=== PATIENT | male | born 1965 | race Caucasian/White ===

== ENCOUNTER 2022-08-02 17:43 | Emergency (ER) | payer SELFPAY ==
--- NOTE | ~2022-08-02 | XR_ITS ---
EXAMINATION: XR chest 2V DATE: 08/02/2022 18:18 INDICATION: Chest pain. TECHNIQUE: Frontal and lateral views of the chest were obtained on 3 radiographs. COMPARISON: Chest 2 views 06/09/2015, CT abdomen and pelvis 10/02/2010 FINDINGS: A calcified right lung nodule is consistent with old granulomatous disease. There is mild s carring at the lung apices. No pleural effusion or pneumothorax. The heart size is normal. IMPRESSION: 1. No acute cardiopulmonary disease. Reviewed, dictated and finalized at location A. ICAL ENGINEERING MANAGER
[2022-08-02 17:55] VITALS: BP 145/98; PULSE 83; RESP 14; TEMP 36.8; O2SAT 97
--- NOTE | 2022-08-02 17:55 | ECG_ITS ---
Measurements Intervals [place] Rate: 81 P: 59 DC: 166 QRS: 16 QRSD: 93 T: 54 QT: 326 QTc: 379 Interpretive Statements SINUS RHYTHM WITHIN NORMAL LIMITS NO PREVIOUS ECG AVAILABLE FOR COMPARISON Electronically Signed On 08-03-2022 15:08:52 EMT INTERMEDIATE by Johnathan Marks M.D.
[2022-08-02 18:16] LABS: Alanine Aminotransferase 28 U/L (6-50); Albumin Level 4.6 g/dL (3.5-5.1); Alkaline Phosphatase 48 U/L (38-126); Anion Gap 6 mmol/L (8-16); Aspartate Amino Transferase 27 U/L (17-59); Bilirubin,Total 0.7 mg/dL (0.2-1.3); Blood Urea Nitrogen 16 mg/dL (9-20); Calcium 8.5 mg/dL (8.4-10.2); Carbon Dioxide 25 mmol/L (22-30); Chloride 105 mmol/L (98-107); Estimated CRCL calculation 84 ml/min; Estimated Glomerular Filt Rate > 60; Glucose 113 mg/dL (65-110); Lipase 160 U/L (23-300); Potassium 3.7 mmol/L (3.4-5.0); Sodium 136 mmol/L (137-145)
[2022-08-02 18:22] LABS: Partial Thromboplastin Time 30.2 SECONDS (22.3-36.8); Prothrombin Time 13.1 Seconds (11.1-14.7)
[2022-08-02 18:26] LABS: Troponin I < 0.012 ng/mL (0.000-0.034)
[2022-08-02 19:08] LABS: Basophils Absolute Auto 0.1 K/mm3 (0.0-0.1); Basophils Percent Auto 0.7 % (0.2-1.2); Eosinophils Absolute Auto 0.2 K/mm3 (0-0.3); Eosinophils Percent Auto 1.9 % (0-4.4); Hematocrit 48.8 % (42.0-52.0); Hemoglobin 17.1 g/dL (14.0-18.0); Immature Granulocyte Absolute 0.05 K/mm3 (0.00-0.031); Immature Granulocyte Percent A 0.5 % (0-0.5); Lymphocytes Absolute Auto 3.42 K/mm3 (0.9-3.2); Lymphocytes Percent Auto 35.4 % (18.3-44.2); Mean Corpuscular Hemoglobin 30.9 pg (26-34); Mean Corpuscular Volume 88.2 fl (80-100); Mean Platelet Volume 8.7 fl (7.4-10.4); Monocytes Absolute Auto 0.7 K/mm3 (0.1-0.6); Monocytes Percent Auto 7.1 % (2.6-8.5); Neutrophils Absolute Auto 5.3 K/mm3 (1.3-6.7); Neutrophils Percent Auto 54.4 % (45.5-73.1); Platelet Count Result 179 k/mm3 (150-375); Red Blood Count 5.53 M/mm3 (4.6-6.20); Red Cell Distribution Width 13.1 % (11.5-14.5); White Blood Count 9.7 K/mm3 (4.5-10.0)
[2022-08-02 19:55] VITALS: BP 151/96; PULSE 69; O2SAT 97
--- NOTE | 2022-08-02 20:17 | PC.NURSE ---
patient states that the pressure in his chest is relieved now. patient will follow up with plant technician/control room operator tomorrow.
== END 2022-08-02 20:17 | disposition left against medical advice (07) ==
PROVIDERS: Emergency Provider Emergency Medicine; PCP Internal Medicine Endocrinology, Diabetes & Metabolism
DX: R07.9 Chest pain, unspecified (principal)
CPT/HCPCS: 36415; 71046; 80053; 83690; 84484; 85025; 85610; 85730; 93005; 99199

== ENCOUNTER 2023-08-02 16:57 | Emergency (ER) | payer OTHER, SELFPAY ==
--- NOTE | ~2023-08-02 | XR_ITS ---
EXAMINATION: XR foot RT min 3V DATE: 08/02/2023 17:14 INDICATION: Right foot injury and pain. TECHNIQUE: 4 views of right foot were obtained. COMPARISON: None. FINDINGS: Bone alignment is normal. No fracture. There is mild osteoarthritis of first metatarsophala ngeal joint. There is an enthesophyte at posterior aspect of calcaneal tuberosity. IMPRESSION: 1. Mild osteoarthritis of first metatarsophalangeal joint. Reviewed, dictated and finalized at location E. D EQUIPMENT MECHANIC
--- NOTE | 2023-08-02 17:01 | ED.LOWEXIN ---
HPI - Extremity Injury (Lower) General Chief Complaint: Extremity Injury, Lower Stated Complaint: Right Foot Injury Time Seen by Provider: 08/02/23 17:01 Source: patient Mode of arrival: ambulatory Limitations: no limitations History of Present Illness HPI Narrative: Patient is a 57-year-old male who presents with right foot pain after accidentally kicking 1 indoor this morning. Patient reports bruising, swelling and tenderness to medial foot at base of back toe. Patient still able to ambulate normally. Denies any numbness or tingling. Able to wiggle toes normally. Has taken Advil. Related Data Home Medications Medication Instructions Recorded Confirmed bupropion HCl 300 mg 24 hr tablet, 300 mg PO DAILY 08/02/23 08/02/23 extended release buspirone 15 mg tablet 30 mg PO DAILY 08/02/23 08/02/23 simvastatin 40 mg tablet 40 mg PO DAILY 08/02/23 08/02/23 tadalafil 5 mg tablet 5 mg PO DAILY 08/02/23 08/02/23 testosterone enanthate 100 mg/0.5 100 mg subcut WEEKLY 08/02/23 08/02/23 mL subcutaneous auto-injector (Xyosted) Allergies Allergy/AdvReac Type Severity Reaction Status Date / Time No Known Allergies Allergy Verified 08/02/23 17:02 Review of Systems Review of Systems: All systems reviewed & are unremarkable except as noted in HPI and below Constitutional: Constitutional: Denies body ache(s), Denies chills, Denies fatigue, Denies fever(s), Denies headache(s), Denies malaise and Denies weakness Eyes: Eyes: Denies blurry vision, Denies irritation and Denies loss of vision ENT: Denies otalgia, Denies headache(s), Denies nasal discharge, Denies sinus pain and Denies sore throat Cardiovascular: Cardiovascular: Denies chest pain, Denies irregular heart rhythm and Denies dyspnea Respiratory: Respiratory: Denies dyspnea Gastrointestinal: Gastrointestinal: Denies abdominal pain, Denies melena, Denies hematochezia, Denies diarrhea, Denies nausea and Denies vomiting Musculoskeletal: Musculoskeletal: Denies back pain, Denies myalgias and Reports arthralgias Integumentary/Breasts: Skin/Breast: Denies pruritus and Denies rash Neurologic: Denies headache(s), Denies loss of vision and Denies weakness Psychiatric: Psychiatric: Reports no additional psychiatric complaints Endocrine: Endocrine: Denies fatigue PMFSH Social History Social History Alcohol intake: current Comments At time of signature, agree with nursing past medical, surgical, social and family history. There is no relevant family history pertinent to the presenting complaint. Exam Const: General: cooperative, healthy appearing, comfortable, no acute distress and well nourished Nutritional Appearance: well nourished Orientation/consciousness: patient oriented x3 Limitations: no limitations HENMT: Head: normal to inspection, normocephalic and atraumatic Ears: hearing grossly normal bilaterally and external ears normal Face/Nose/Sinus: Normal external nose present, normal facial exam and face symmetric Face and sinus: normal facial exam and face symmetric Mouth: Yes lip normal Eyes: General: appearance normal, both eyes and all related structures Alignment and Position: alignment normal and position normal Periorbital: periorbital findings normal Eyelids: eyelids normal Pupils: Equal, round and reactive pupils present EOM: EOMs intact bilaterally Neck: Neck: normal visual inspection, full ROM and supple Chest: Chest palpation & inspection: normal inspection of the chest Resp: Effort & Inspection: normal respiratory effort and able to speak in complete sentences Auscultation: clear to auscultation bilaterally Cardio: Rate: regular rate Rhythm: regular rhythm Heart sounds: S1 normal heart sound present and S2 normal heart sound present GI: Inspection: normal to inspection Skin: General skin exam: normal color and no rashes or lesions noted Neuro: General: patient oriented x3
[2023-08-02 17:04] VITALS: BP 140/80; PULSE 87; RESP 16; TEMP 36.6; O2SAT 100
== END 2023-08-02 17:28 | disposition home or self-care (01) ==
PROVIDERS: Emergency Provider Nurse Practitioner Family; PCP Internal Medicine Endocrinology, Diabetes & Metabolism
DX: M19.071 Primary osteoarthritis, right ankle and foot (principal); S90.31XA Contusion of right foot, initial encounter; W22.8XXA Striking against or struck by other objects, initial encounter; E78.00 Pure hypercholesterolemia, unspecified; F41.9 Anxiety disorder, unspecified; F32.A Depression, unspecified
CPT/HCPCS: 73630; 99213; G0463

== ENCOUNTER 2024-12-21 13:30 | Outpatient (CLI) | payer OTHER, SELFPAY ==
--- NOTE | ~2024-12-21 | PE_ITS ---
EXAMINATION: PET_PETPSMAST_PT DATE: 12/21/2024 15:33 INDICATION: Prostate cancer TECHNIQUE: 5.563 mCi of Illucix Ga-68([id number]) was administered i.v. Low dose computed mare graphy (CT) images were acquired from the base of the brain to the base of the brain to the proximal thighs for attenuation correction and anatomic localization. Positron emission tomography (PET) image s were acquired in the same distribution beginning 99 minutes after injection. Images including fused PET/CT images were reconstructed in axial, coronal, and sagittal planes. Automated exposure control technique was employed. The dose-length product was 1204.02mGy-cm. COMPARISON: None FINDINGS: Head/neck: Typical pattern of symmetric physiologic increased activity in the lacrimal, parotid and submandibula r glands as well as along the mucosa of the nasal and oral cavities. No pathologically enlarged cervi shashi lymphadenopathy or suspicious foci of increased uptake in the visualized head or neck. Chest: Dependent atelectasis in both lungs. Calcified nodules in the right lung along with calcified right h ilar and mediastinal lymph nodes consistent with old granulomatous disease. No suspicious pulmonary n odules, pneumonia, pulmonary edema or pleural effusion. Heart size is normal. Small amount of atheros clerotic coronary artery calcification. No pericardial effusion. Thoracic aorta is normal in caliber. No pathologically enlarged or PSMA avid thoracic lymphadenopathy. Abdomen/pelvis/proximal thighs: Physiologic renal accumulation and excretion of activity in the kidneys, bladder and along portions o f ureters. Prostatomegaly measuring 5.0 x 4.3 cm. There is heterogeneous heterogeneous minimal increa sed uptake in the right first posterior prostate with maximal SUV of 2.9. Normal degree and slightly heterogenous pattern of increased uptake throughout the liver and spleen without radiologic correlate or dominant PSMA avid lesion. A few splenic calcifications consistent with old granulomatous disease . The gallbladder, pancreas and bilateral adrenal glands are normal. Moderate uptake scattered throug hout the bowels with typical duodenal and proximal jejunal predominance and without radiologic correl ate, also likely physiologic. No other abnormal foci of increased uptake or pathologically enlarged l ymphadenopathy in the abdomen, pelvis or proximal thighs. Musculoskeletal: No suspicious lytic, blastic or abnormally PSMA avid bone lesions. IMPRESSION: 1. Prostatomegaly with heterogeneous minimal increased uptake in the right posterior prostate which l ikely represents the site of the reported primary prostate cancer. No evident metastatic disease. Reviewed, dictated and finalized at location A. IMPRESSION: 1. Prostatomegaly with heterogeneous minimal increased uptake in the right post erior prostate which likely represents the site of the reported primary prostat e cancer. No evident metastatic disease.
--- OUTSIDE RECORDS SUMMARY | 2024-12-21 13:35 | XMS_ITS | Referral Summary ---
Author Organization [facility] Address [address] [place] [address] Care Team Providers Care Manager Dental Name Role Phone Johnathan Day MD Primary Care Provider + Pierre Moran MD Unavailable [phone] Fatuma Vásquez RN Unavailable Unavailable Evita Mendoza RN Unavailable Unavailab le Encounters Date Type Department Care Team Description 12/21/2024 Telephone [facility] [address] [place] [phone] Johnathan Day MD 12/15/2024 1:20 PM CDT Office Visit [facility]iology [facility] 8th [place] [address] [place] [phone] Pierre Moran MD Mixed hyperlipidemia (Primary Dx) 09/23/2024 Results Follow-Up [facility] [address] [facility] [place] [phone] Johnathan Day MD TSH, T4, free, Comprehensive metabolic panel, Additional followed-up results: 4 09/23/2024 5:05 PM CDT Lab [facility] [place] [phone] Mixed hyperlipidemia; Atypical atrial flutter (HCC); Elevated PSA measurement; Hypogonadism male 09/23/2024 1:15 PM CDT Office [facility] [address] [place] [address] Johnathan Day MD Mixed hyperlipidemia (Primary Dx); Atypical atrial flutter (HCC); Elevated PSA measurement; Hypogonadism male 09/23/2024 2:30 PM CDT Office Visit [facility]iology [address] 8th [place] [address] [place] [address] Rebekah Holman NP Atypical atrial flutter (HCC) (Primary Dx) from Last 3 Months Allergies No known active allergies Medications busPIRone (BUSPAR) 15 mg tablet Take 1 tablet (15 mg total) by mouth 2 (two) times a day Active buPROPion XL (WELLBUTRIN XL) 300 mg 24 hr tablet 3 Active Xyosted 100 mg/0.5 mL auto-injector Inject 0.5 mL by subcutaneous injection every 7 days. 6 mL 1 4 Active Lactobacillus acidophilus 10 billion cell capsule Take by mouth Active simvastatin (ZOCOR) 40 mg tablet TAKE 1 TABLET DAILY 90 tablet 2 5 Active tadalafiL (CIALIS) 5 mg tablet TAKE 1 TABLET DAILY 90 tablet 3 5 Active Active Problems Problem Noted Date Diagnosed Date Elevated PSA measurement 09/23/2024 Acute cystitis without hematuria 05/21/2024 Overview (05/21/2024): Check urine culture PSA Hypogonadism male 08/16/2020 Overview (08/16/2020): Continue xyosted Mixed hyperlipidemia 06/25/2017 Periodic limb movements of sleep 06/25/2017 Action tremor 06/25/2017 Paroxysmal atrial fibrillation 06/05/2017 Palpitations 04/25/2016 Myoclonus 10/20/2015 Restless sleeper 10/20/2015 Snoring 10/20/2015 Atypical atrial flutter 06/20/2015 Thrombosed external hemorrhoids 11/05/2014 Overview (09/14/2016): External hemorrhoid, thrombosed Immunizations Immunization Administration Dates Next Due Influenza, Quadrivalent, Rachel l Culture-based MDCK, Antibiotic Free, Intramuscular 03/17/2020 Tdap 12/22/2017 Social History Tobacco Use Types Packs/Day Years Used Date Smoking Tobacco: Never Smokeless Tobacco: Never Tobacco Cessation:Counseling Given: Not Answered Alcohol Use Standard Drinks/Week Comments No 0 (1 standard drink = 0.6 oz pur e alcohol) PHQ-2 Answer Date Recorded PHQ-2 Total Score (If total score is 3 or more points, staff should administer the PHQ-9) 0 09/12/2023 PHQ-9 Answer Date Recorded PHQ-9 Total Score 3 09/12/2023 Sex and Gender Information Value Date Recorded Sex Assigned at Not on file Legal Sex Male 1:22 AM QUEEN PRODUCER Gender Identity Not on file Sexual Orientation Not on file Last Filed Vital Signs Vital Sign Reading Time Taken Comments Blood Pressure 119/73 12/15/2024 1:27 PM CDT Pulse 72 12/15/2024 1:27 PM CDT Temperature 36.7 C (98.1 F) 07/06/2020 9:29 AM QUEEN PRODUCER Respiratory Rate 16 12/16/2018 4:04 PM CDT Oxygen Saturation 96% 12/15/2024 1:27 PM CDT Inhaled Oxygen Concentration - - Weight 96.7 kg (213 lb 3.2 oz) 12/15/2024 1:27 P M CDT Height 193 cm (6' 4) 12/15/2024 1:27 PM CDT Body Mass Index 25.95 12/15/2024 1:27 PM CDT Plan of Treatment Not on file Procedures Procedure Name Priority Date/Time Associated Diagnosis Comments EGFR Routine 09/23/2024 1:53 PM CDT Mixed hyperlipidemia Atypical atrial flutter (HCC) Elevated PSA measurement Hypogonadism male DIFFERENTIAL AUTO Routine 09/23/2024 1:5 3 PM CDT Mixed hyperlipidemia Atypical atrial flutter (HCC) Elevated PSA measurement Hypogonadism male TOTAL TESTOSTERONE Routine 09/23/2024 1: 53 PM CDT Mixed hyperlipidemia Atypical atrial flutter (HCC) Elevated PSA measurement Hypogonadism male CBC WITH AUTO DIFFERENTIAL Routine 09/23/2024 1:53 PM CDT Mixed hyperlipidemia Atypical atrial flutter (HCC) Elevated PSA measurement Hypogonadism male COMPREHENSIVE METABOLIC PANEL Routine 09/23/2024 1:53 PM CDT Mixed hyperlipidemia Atypical atrial flutter (HCC) Elevated PSA measurement Hypogonadism male T4, FREE Routine 09/23/2024 1:53 PM CDT Mixed hyperlipidemia Atypical atrial flutter (HCC) Elevated PSA measurement Hypogonadism male TSH Routine 09/23/2024 1:53 PM CDT Mixed hyperlipidemia Atypical atrial flutter (HCC) Elevated PSA measurement Hypogonadism male POCT GLUCOSE [id number] Routine 09/23/2024 1: 10 PM CDT Mixed hyperlipidemia POCT LIPID PANEL Routine 09/23/2024 1:10 PM CDT Mixed hyperlipidemia PSA SCREEN Routine 05/25/2024 3:02 PM QUEEN PRODUCER Acute cystitis without hematuria STOOL DNA COLOGUARD Routine 03/20/2022 10:20 AM CDT Special screening for malignant neoplasms, colon from Last 3 Months or Most Recently Relevant to Health Maintenance Results * eGFR (09/23/2024 1:53 PM CDT) eGFR 61 >=60 mL/min/1. 73 m2 Comment: Interpretive Data Reference Interval Normal >/= 90 mL/min/1.73m2 Mildly decreased* 60 - 89 mL/min/1.73m2 Mildly to moderately decreased 45 - 59 mL/min/1.73m2 Moderately to severely decreased 30 - 44 mL/min/1.73m2 Severely decreased 15 - 29 mL/min/1.73m2 Kidney Failure < 15 mL/min/1.73m2 *Relative to young adult level Estimated glomerular filtration rate is determined by the 2020 CKD-EPI equation recommended by the National Kidney Foundation (A Unifying Approach to GFR Estimation: Recommendations of the NKF-ASK Task Force on Reassessing the Inclusion of Race in Diagnosing Kidney Disease, JASN 2020). The CKD-EPI equation should not be used for patients with unstable renal function and has not been validated in children and those over 70. Current interpretive data was last reviewed 2021. Blood 09/23/2024 1:53 PM CDT 09/23/2024 2:14 PM CDT us Johnathan Day MD LAB BLOOD ORDERABLES Fin al Result [facility] [place] [address] * Differential, auto (09/23/2024 1:53 PM CDT) Neutrophil abs 4.35 1.50 - 6.50 K/cumm Imm gran abs 0.03 0.00 - 0.10 K/cumm [facility] Lymphocyte abs 2.81 0.80 - 3.30 K/cumm [facility] Monocyte abs 0.51 0.20 - 0.80 K/cumm [facility] Eosinophil abs 0.09 0.00 - 0.50 K/cumm [facility] Basophil abs 0.06 0.00 - 0.10 K/cumm [facility] Neutrophil pct 55.4 % [facility] Comment: Interpretive Data Percent cell count reference ranges are not reported, since discordance with absolute values may lead to misinterpretation of CBC data. Current Interpretive Data was last revised on 2017. Imm gran pct 0.4 % [facility] Comment: Interpretive Data Percent cell count reference ranges are not reported, since discordance with absolute values may lead to misinterpretation of CBC data. Current Interpretive Data was last revised on 2017. Lymphocyte pct 35.8 % [facility] Comment: Interpretive Data Percent cell count reference ranges are not reported, since discordance with absolute values may lead to misinterpretation of CBC data. Current Interpretive Data was last revised on 2017. Monocyte pct 6.5 % [facility] Comment: Interpretive Data Percent cell count reference ranges are not reported, since discordance with absolute values may lead to misinterpretation of CBC data. Current Interpretive Data was last revised on 2017. Eosinophil pct 1.1 % [facility] Comment: Interpretive Data Percent cell count reference ranges are not reported, since discordance with absolute values may lead to misinterpretation of CBC data. Current Interpretive Data was last revised on 2017. Basophil pct 0.8 % [facility] Comment: Interpretive Data Percent cell count reference ranges are not reported, since discordance with absolute values may lead to misinterpretation of CBC data. Current Interpretive Data was last revised on 2017. Blood 09/23/2024 1:53 PM CDT 09/23/2024 2:14 PM CDT us Johnathan Day MD LAB BLOOD ORDERABLES Fin al Result [facility] [place] [address] * (ABNORMAL) CBC with auto differential (09/23/2024 1:53 PM CDT) [facility] WBC 7.85 3.80 - 9.90 K/cumm Hgb 16.2 13.0 - 17.5 g/dL [facility] Hct 45.0 38.9 - 50.3 % [facility] Plt 177 150 - 400 K/cumm [facility] MPV 8.6(L) 9.1 - 12.[address] [facility] RBC 5.36 4.30 - 5.80 M/cumm [facility] MCV 84.0 81.3 - 96.[address] [facility] MCH 30.2 27.1 - 33.[address] [facility] MCHC 36.0(H) 32.3 - 35.7 g/dL [facility] RDW CV 12.5 11.1 - 14.9 % [facility] RDW SD 38.0 35.7 - 48.[address] [facility] NRBC abs 0.00 0.00 - 0.01 K/cumm [facility] Blood 09/23/2024 1:53 PM CDT 09/23/2024 2:14 PM CDT Johnathan Day MD LAB BLOOD ORDERABLES Fin al Result Performing Organization Address [facility] de Phone Number [facility] [place] [address] * TSH (09/23/2024 1:53 PM CDT) Thyroid Stimulating Hormone 1.78 0.30 - 4.20 mcIUnit/mL Blood 09/23/2024 1:53 PM CDT 09/23/2024 2:14 PM CDT Johnathan Day MD LAB BLOOD ORDERABLES Fin al Result Performing Organization Address [facility] Phone Number [facility] [place] [address] * T4, free (09/23/2024 1:53 PM CDT) Free T4 1.10 0.90 - 1.70 ng/dL Blood 09/23/2024 1:53 PM CDT 09/23/2024 2:14 PM CDT Result [facility] Johnathan Day MD LAB BLOOD ORDERABLES Fin al Result Performing Organization Address [facility] Phone Number [facility] [place] [address] * (ABNORMAL) Total testosterone (09/23/2024 1:53 PM CDT) Testosterone 147.0(L) 193.0 - 740.0 ng/dL Blood 09/23/2024 1:53 PM CDT 09/23/2024 2:14 PM CDT Johnathan Day MD LAB BLOOD ORDERABLES Fin al Result Performing Organization Address [facility] Co de Phone Number [facility] [place] [address] * (ABNORMAL) Comprehensive metabolic panel (09/23/2024 1:53 PM CDT) Sodium 142 135 - 145 mmol/L Potassium, pl 4.1 3.3 - 4.9 mmol/L [facility] Chloride 105 97 - 110 mmol/L [facility] CO2 29 22 - 32 mmol/L [facility] Anion gap 8 2 - 15 mmol/L [facility] BUN 14 6 - 25 mg/dL [facility] Creatinine 1.36(H) 0.80 - 1.30 mg/dL [facility] Glucose 93 70 - 199 mg/dL [facility] Comment: Interpretive Data Fasting glucose >/= 126 mg/dl is diagnostic for diabetes. Fasting is defined as no caloric intake for at least 8 hours. Fasting glucose between 100 mg/dl to 125 mg/dl is diagnostic of prediabetes. In a patient with classic symptoms of hyperglycemia or hyperglycemic crisis, a random glucose >/= 200 mg/dl is diagnostic for diabetes. In the absence of unequivocal hyperglycemia, results should be confirmed by repeat testing. The classification and Diagnosis of Diabetes Diabetes Care 2021; 46: S19-S40. Current interpretive data was last revised 2022. Calcium 9.0 8.5 - 10.3 mg/dL [facility] Bilirubin, total 0.7 0.1 - 1.2 mg/dL [facility] Protein, pl 7.1 6.5 - 8.5 g/dL [facility] Albumin 4.5 3.5 - 5.0 g/dL [facility] Alk phos 62 40 - 130 Units/L [facility] ALT 40 7 - 55 Units/L [facility] AST 25 10 - 50 Units/L [facility] Blood 09/23/2024 1:53 PM CDT 09/23/2024 2:14 PM CDT us Johnathan Day MD LAB BLOOD ORDERABLES Fin al Result [facility] [place] [address] * POCT glucose (09/23/2024 1:10 PM CDT) Glucose Blood, POC 84 mg/dL Blood 09/23/2024 1:10 PM CDT Johnathan Day MD POINT OF CARE TEST ORDER [place] Final Result * (ABNORMAL) POCT lipid panel (09/23/2024 1:10 PM CDT) Cholesterol, POC 155 mg/dL HDL, POC 40 mg/dL Triglycerides, POC 255 mg/dL LDL Cholesterol POC 63 mg/dL Chol/HDL Ratio, POC 3.8 Non-HDL Cholesterol, POC 114 mg/dL Cholesterol Total, POC 155 mg/dL Capillary blood 09/23/2024 1 :10 PM CDT Johnathan Day MD POINT OF CARE TEST ORDER [place] Final Result * (ABNORMAL) PSA screen (05/25/2024 3:02 PM QUEEN PRODUCER) PSA 25.8(H) 0.0 - 4.0 ng/mL [facility] - 01 Comment: [place] ECLIA methodology. According to the [place] [employer], Serum PSA should decrease and remain at undetectable levels after radical prostatectomy. The AUA defines biochemical recurrence as an initial PSA value 0.2 ng/mL or greater followed by a subsequent confirmatory PSA value 0.2 ng/mL or greater. Values obtained with different assay methods or kits cannot be used interchangeably. Results cannot be interpreted as absolute evidence of the presence or absence of malignant disease. Blood 05/25/2024 3:02 PM QUEEN PRODUCER 05/25/2024 Narrative [facility] - 05/26/2024 8:12 AM QUEEN PRODUCER Performed at: - [facility] [id number] Skip Load Driver: Deric Guillen PhD, Phone: [phone] Johnathan Day MD LAB BLOOD ORDERABLES Fin al Result [facility] 01 * Stool DNA - Cologuard (03/20/2022 10:20 AM CDT) Stool DNA - Cologuard Negative Negative [facility] (CLIA #:[id number]) Comment: NEGATIVE TEST RESULT. A negative Cologuard result indicates a low likelihood that a colorectal cancer (CRC) or advanced adenoma (adenomatous polyps with more advanced pre-malignant features) is present. The chance that a person with a negative Cologuard test has a colorectal cancer is less than 1 in 1500 (negative predictive value >99.9%) or has an advanced adenoma is less than 5.3% (negative predictive value 94.7%). These data are based on a prospective cross-sectional study of 10,000 individuals at average risk for colorectal cancer who were screened with both Cologuard and colonoscopy. (Ellie Key et al, N Engl J Med 2014;370(14):3909-7638) The normal value (reference range) for this assay is negative. COLOGUARD RE-SCREENING RECOMMENDATION: Periodic colorectal cancer screening is an important part of preventive healthcare for asymptomatic individuals at average risk for colorectal cancer. Following a negative Cologuard result, the [place] [employer] Society and U.S. Multi-Society Task Force screening guidelines recommend a Cologuard re-screening interval of 3 years. References: [place] [employer] Guideline for Colorectal Cancer Screening: https://www.cancer.org/cancer/lbasd-lxdapu-dbhhyg/mywvknzgl-btwmioihn-tdxwidu/ac s-rec ommendations.html.; [address], Sherly FOX, Bryan KATHLEEN, Colorectal Cancer Screening: Recommendations for Physicians and Patients from the U.S. Multi-Society Task Force on Colorectal Cancer Screening , Am J Gastroenterology 2017; 112:6004-7388. TEST DESCRIPTION: Composite algorithmic analysis of stool DNA-biomarkers with hemoglobin immunoassay. Quantitative values of individual biomarkers are not reportable and are not associated with individual biomarker result reference ranges. Cologuard is intended for colorectal cancer screening of adults of either sex, 45 years or older, who are at average-risk for colorectal cancer (CRC). Cologuard has been approved for use by the U.S. FDA. The performance of Cologuard was established in a cross sectional study of average-risk adults aged 50-84. Cologuard performance in patients ages 45 to 49 years was estimated by sub-group analysis of near-age groups. Colonoscopies performed for a positive result may find as the most clinically significant lesion: colorectal cancer [4.0%], advanced adenoma (including sessile serrated polyps greater than or equal to 1cm diameter) [20%] or non- advanced adenoma [31%]; or no colorectal neoplasia [45%]. These estimates are derived from a prospective cross-sectional screening study of 10,000 individuals at average risk for colorectal cancer who were screened with both Cologuard and colonoscopy. (Ellie Ramon. et al, N Engl J Med 2014;370(14):6610-3149.) Cologuard may produce a false negative or false positive result (no colorectal cancer or precancerous polyp present at colonoscopy follow up). A negative Cologuard test result does not guarantee the absence of CRC or advanced adenoma (pre-cancer). The current Cologuard screening interval is every 3 years. ([place] [employer] Society and U.S. Multi-Society Task Force). Cologuard performance data in a 10,000 patient pivotal study using colonoscopy as the reference method can be accessed at the following location: www.NERITES/results. Additional description of the Cologuard test process, warnings and precautions can be found at www.cologuard.com. Stool 03/20/2022 10:2 0 AM CDT 03/22/2022 2:06 PM CDT us Johnathan Day MD LAB BODY FLUIDS AND STOO LS ORDERABLES Final Result [facility] (CLIA #:[id number]) [address] [place] [address] from Last 3 Months or Most Recently Relevant to Health Maintenance Insurance [facility] H[facility] Care Teams Manager Dental Relationship Specialty Start Date End Date Johnathan Day MD PCP - General 11/05/14 Pierre Moran MD Referring Physician Cardiology 12/10/22 Fatuma Vásquez, ecommerce project manager Failure Coordinator Transplant 07/10/23 Evita Mendoza RN Heart Failure Coordinator Cardiology 12/09/23
--- OUTSIDE RECORDS SUMMARY | 2024-12-21 13:35 | XMS_ITS | Encounter Summary ---
Author Organization [facility] Address [address] [place] [address] Care Team Providers Care Food Order Delivery Runner Name Role Phone Johnathan Day MD Primary Care Provider + Pierre Moran MD Unavailable [phone] Fatuma Vásquez RN Unavailable Unavailable Evita Mendoza RN Unavailable Unavailab le Encounter Details Date Type Department Care Team (Late st Contact Info) Description 12/21/2024 Telephone [facility] [address] [facility] [address] [address] Johnathan Day MD [address] [place] [address] Social History Tobacco Use Types Packs/Day Years Used Date Smoking Tobacco: Never Smokeless Tobacco: Never Alcohol Use Standard Drinks/Week Comments No 0 [...] on file 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 documented in this encounter Plan of Treatment Not on file documented as of this encounter Visit Diagnoses Not on filedocumented in this encounter Care Teams Food Order Delivery Runner Relationship Specialty Start Date End Date Johnathan Day MD PCP - General 11/05/14 Pierre Moran MD Referring Physician Cardiology 12/10/22 Fatuma Vásquez, wiper blender Failure Coordinator Transplant 07/10/23 Evita Mendoza, wiper blender Failure Coordinator Cardiology 12/09/23 documented as of this encounter
--- OUTSIDE RECORDS SUMMARY | 2024-12-21 13:35 | XMS_ITS | Clinical Summary ---
Author Organization [facility] Address [address] [facility] [place] [address] Care Team Providers Care Professor Of Management Name Role Phone Johnathan Day MD Primary Care Provider + Source Comments [facility],non-owned Affiliates and Associated Physician Practices is amultiple site organization consisting of ambulatory clinics and hospital sitesin [place], [place], [place] and [place]. This disclosure is being madepursuant to the Care Everywhere program and may not contain all information available regarding this patient. Last updated 18.[facility] Allergies No known active allergies Immunizations Immunization Administration Dates Next Due TDAP (7yrs+) 12/22/2017 Social History Tobacco Use Types Packs/Day Years Used Date Smoking Tobacco: Never Assessed Sex and Gender Information Value Date Recorded Sex Assigned at Not on file Legal Sex Male 4:32 PM CDT Gender Identity Not on file Sexual Orientation Not on file Plan of Treatment Health Maintenance Due Date Last Done Comments COLOGUARD (AGES 45-75) - COL ON CA SCREENING 1967 COLON MONITORING 1967 COLONOSCOPY - COLON CA SCREENING 1967 CT COLONOGRAPHY - COLON CA SCREENING 1967 Colorectal Cancer Screening 1967 FIT - COLON CA SCREENING 1967 FLEX SIG - COLON CA SCREENING 1967 LIPID TESTING 1967 HIV SCREENING 10/11/1982 HEPATITIS C SCREENING 10/07/1985 HEPATITIS B VACCINE (1 of 3 - 19+ 3-dose series) 10/11/1986 PNEUMOCOCCAL VACCINE 50+ (1 of 1 - PCV) 10/11/2017 ZOSTER VACCINE (1 of 2) 10/11/2017 COVID-19 VACCINE ( - 2023-2 5 season) 2024 DEPRESSION SCREENING 06/10/2024 INFLUENZA VACCINE (#1) 2025 DTAP/TDAP/TD VACCINES (2 - T d or Tdap) 12/23/2027 12/22/2017 HIB VACCINE Aged Out No longer eligi ble based on patient's age to complete this topic HPV VACCINE Aged Out No longer eligi ble based on patient's age to complete this topic MENINGOCOCCAL (Group B) VACC INE SHARED DECISION-MAKING Aged Out No longer eligibl e based on patient's age to complete this topic MENINGOCOCCAL GROUPS A/C/Y/W VACCINE Aged Out No longer eligible b ased on patient's age to complete this topic Insurance [facility] Care Teams Professor Of Management Relationship Specialty Start Date End Date Johnathan Day MD [id number] [place] [address] PCP - General Internal Medicine 12/22/17
--- OUTSIDE RECORDS SUMMARY | 2024-12-21 13:35 | XMS_ITS | Clinical Summary ---
Author Organization [facility] Address [address] [place] [address] Care Team Providers Care Ballpoint Pen Assembly Machine Operator Name Role Phone Johnathan Day MD Primary Care Provider + Pierre Moran MD Unavailable [phone] Fatuma Vásquez RN Unavailable Unavailable Evita Mendoza RN Unavailable Unavailab le Allergies No known active allergies Medications busPIRone [...] hemorrhoids 11/05/2014 Overview (09/14/2016): External hemorrhoid, thrombosed Encounters Date Type Department Care Team Description 12/21/2024 Telephone [facility] [address] [facility] [address] [place] [id number] Johnathan Day MD 12/15/2024 1:20 PM CDT Office Visit [facility] [address] [place] [address] 8th [address] [place] [phone] Pierre Moran MD Mixed hyperlipidemia (Primary Dx) 09/23/2024 5:05 PM CDT Lab [facility] [place] [id number] Mixed hyperlipidemia; Atypical atrial flutter (HCC); Elevated PSA measurement; Hypogonadism male 09/23/2024 2:30 PM CDT Office Visit [facility] [address] [place] [address] 8th [place] [address] [place] [address] Rebekah Holman NP Atypical atrial flutter (HCC) (Primary Dx) 09/23/2024 1:15 PM CDT Office Visit [facility] [address] [place] [address] [address] [place] [phone] Johnathan Day MD Mixed hyperlipidemia (Primary Dx); Atypical atrial flutter (HCC); Elevated PSA measurement; Hypogonadism male 09/23/2024 Results Follow-Up [facility] [address] [place] [address] [address] [place] [phone] Johnathan Day MD TSH, T4, free, Comprehensive metabolic panel, Additional followed-up results: 4 from Last 3 Months Immunizations Immunization Administration Dates Next Due Influenza, Quadrivalent, Rachel l Culture-based MDCK, Antibiotic Free, Intramuscular 03/17/2020 Tdap 12/22/2017 Medical History Medical History Date Comments Depression High cholesterol Atrial fibrillation (HCC) Adhd Family History Medical History Relation Name Comments No Known Problems Father Alzheimer's disease Mother Relation Name Status Comments Father Mother Social History Tobacco Use Types Packs/Day Years [...] on file Legal 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 Gender Identity Not on file Sexual Orientation Not on file Obstetrics History Last Filed Vital Signs Vital Sign Reading Time Taken Comments Blood Pressure 119/73 12/15/2024 1:27 PM CDT Pulse 72 12/15/2024 1:27 PM CDT Temperature 36.7 C (98.1 F) 07/06/2020 9:29 AM ACOUSTICAL TILE DRILL PRESS OPERATOR Respiratory Rate 16 12/16/2018 4:04 PM CDT Oxygen Saturation 96% 12/15/2024 1:27 PM CDT Inhaled Oxygen Concentration - - Weight 96.7 kg (213 lb 3.2 oz) 12/15/2024 1:27 P M CDT Height 193 cm (6' 4) 12/15/2024 1:27 PM CDT Body Mass Index 25.95 12/15/2024 1:27 PM CDT Plan of Treatment Health Maintenance Due Date Last Done Comments Colon Cancer Screening-Colonoscopy 1965 Hepatitis C Screening 1965 Hepatitis B Screening 10/11/1985 Regular Well Visit/Exam 18-64 10/11/1985 Zoster Vaccine (1 of 2) 10/11/2017 Covid-19 Vaccine ( season) 2024 04/08/2021, 08/12/2020 Depression Screening 09/11/2024 09/12/2023, 09/12/19 24 Influenza Vaccine (#1) 2025 03/17/2020 Prostate Cancer Screening-PSA 05/25/2026 05/25/2024, 09/12/2023, 02/20/2023, Additional history exists DTaP/Tdap/Td Vaccine (2 - Td or Tdap) 12/23/2027 12/22/2017 Colon Cancer Screening-DNA Stool Discontinued 03/20/2022 Colon Cancer Screening-FIT Discontinued 03/20/2022 Pneumococcal vaccine <65 Aged Out No longer eligible based on patient's age to complete this topic Procedures Procedure Name Priority Date/Time Associated Diagnosis [...] Elevated PSA measurement Hypogonadism male POCT GLUCOSE 02027 Routine 09/23/2024 1: 10 PM CDT Mixed hyperlipidemia POCT LIPID PANEL Routine 09/23/2024 1:10 PM CDT Mixed hyperlipidemia PSA SCREEN Routine 05/25/2024 3:02 PM ACOUSTICAL TILE DRILL PRESS OPERATOR Acute cystitis without hematuria STOOL DNA COLOGUARD [...] MD LAB BLOOD ORDERABLES Fin al Result [facility] [place] [address] * Differential, auto (09/23/2024 1:53 PM CDT) Neutrophil abs 4.35 1.50 - 6.50 K/cumm Imm gran abs 0.03 0.00 - 0.10 K/cumm [facility] Lymphocyte abs 2.81 0.80 - 3.30 K/cumm [facility] Monocyte abs 0.51 0.20 - 0.80 K/cumm [facility] Eosinophil abs 0.09 0.00 - 0.50 K/cumm [facility] Basophil abs 0.06 0.00 - 0.10 K/cumm [facility] Neutrophil pct 55.4 % [facility] Comment: Interpretive Data Percent cell count reference ranges are not reported, since discordance with absolute values may lead to misinterpretation of CBC data. Current Interpretive Data was last revised on 2017. Imm gran pct 0.4 % [facility] Comment: Interpretive Data Percent cell count reference ranges are not reported, since discordance with absolute values may lead to misinterpretation of CBC data. Current Interpretive Data was last revised on 2017. Lymphocyte pct 35.8 % [facility] Comment: Interpretive Data Percent cell count reference ranges are not reported, since discordance with absolute values may lead to misinterpretation of CBC data. Current Interpretive Data was last revised on 2017. Monocyte pct 6.5 % [facility] Comment: Interpretive Data Percent cell count reference ranges are not reported, since discordance with absolute values may lead to misinterpretation of CBC data. Current Interpretive Data was last revised on 2017. Eosinophil pct 1.1 % [facility] Comment: Interpretive Data Percent cell count reference ranges are not reported, since discordance with absolute values may lead to misinterpretation of CBC data. Current Interpretive Data was last revised on 2017. Basophil pct 0.8 % [facility] Comment: Interpretive Data Percent cell count reference ranges are not reported, since discordance with absolute values may lead to misinterpretation of CBC data. Current Interpretive Data was last revised on 2017. Blood 09/23/2024 1:53 PM CDT 09/23/2024 2:14 PM CDT us Johnathan Day MD LAB BLOOD ORDERABLES Fin al Result [facility] One [facility] [place] [address] * (ABNORMAL) CBC with auto differential (09/23/2024 1:53 PM CDT) [facility] WBC 7.85 3.80 - 9.90 K/cumm Hgb 16.2 13.0 - 17.5 g/dL [facility] Hct 45.0 38.9 - 50.3 % [facility] Plt 177 150 - 400 K/cumm [facility] MPV 8.6(L) 9.1 - 12.3 fL [facility] RBC 5.36 4.30 - 5.80 M/cumm [facility] MCV 84.0 81.3 - 96.4 fL [facility] MCH 30.2 27.1 - 33.3 pg [facility] MCHC 36.0(H) 32.3 - 35.7 g/dL [facility] RDW CV 12.5 11.1 - 14.9 % [facility] RDW SD 38.0 35.7 - 48.1 fL [facility] NRBC abs 0.00 0.00 - 0.01 K/cumm [facility] Blood 09/23/2024 1:53 PM CDT 09/23/2024 2:14 PM CDT Johnathan Day MD LAB BLOOD ORDERABLES Fin al Result Performing Organization Address [facility] de Phone Number [facility] [place] [address] * TSH (09/23/2024 1:53 PM CDT) [facility] Thyroid Stimulating Hormone 1.78 0.30 - 4.20 mcIUnit/mL Blood 09/23/2024 1:53 PM CDT 09/23/2024 2:14 PM CDT Johnathan Day MD LAB BLOOD ORDERABLES Fin al Result Performing Organization Address [facility] Co de Phone Number [facility] [place] [address] * T4, free (09/23/2024 1:53 PM CDT) Pathologist [facility] Free T4 1.10 0.90 - 1.70 ng/dL Blood 09/23/2024 1:53 PM CDT 09/23/2024 2:14 PM CDT Johnathan Day MD LAB BLOOD ORDERABLES Fin al Result Performing Organization Address [facility] Co de Phone Number [facility] [place] [address] * (ABNORMAL) Total testosterone (09/23/2024 1:53 PM CDT) [facility] Testosterone 147.0(L) 193.0 - 740.0 ng/dL Blood 09/23/2024 1:53 PM CDT 09/23/2024 2:14 PM CDT Johnathan Day MD LAB BLOOD ORDERABLES Fin al Result Performing Organization Address [facility] de Phone Number [facility] [place] [address] * (ABNORMAL) Comprehensive metabolic panel (09/23/2024 1:53 PM CDT) [facility] Sodium 142 135 - 145 mmol/L Potassium, pl 4.1 3.3 - 4.9 mmol/L [facility] Chloride 105 97 - 110 mmol/L [facility] CO2 29 22 - 32 mmol/L [facility] Anion gap 8 2 - 15 mmol/L [facility] BUN 14 6 - 25 mg/dL [facility] Creatinine 1.36(H) 0.80 - 1.30 mg/dL [facility] Glucose 93 70 - 199 mg/dL [facility] Comment: Interpretive Data Fasting glucose >/= [...] 2022. Calcium 9.0 8.5 - 10.3 mg/dL [facility] Bilirubin, total 0.7 0.1 - 1.2 mg/dL [facility] Protein, pl 7.1 6.5 - 8.5 g/dL [facility] Albumin 4.5 3.5 - 5.0 g/dL [facility] Alk phos 62 40 - 130 Units/L [facility] ALT 40 7 - 55 Units/L [facility] AST 25 10 - 50 Units/L [facility] Blood 09/23/2024 1:53 PM CDT 09/23/2024 2:14 PM CDT Johnathan Day MD LAB BLOOD ORDERABLES Fin al Result [facility] [place] [address] * POCT glucose (09/23/2024 1:10 PM CDT) [...] * (ABNORMAL) PSA screen (05/25/2024 3:02 PM ACOUSTICAL TILE DRILL PRESS OPERATOR) Pathologist [facility] PSA 25.8(H) 0.0 - 4.0 ng/mL [facility] - 01 Comment: Ronak ECLIA methodology. According to the [place] [employer], Serum PSA should decrease and [...] of malignant disease. Blood 05/25/2024 3:02 PM ACOUSTICAL TILE DRILL PRESS OPERATOR 05/25/2024 Narrative [facility] - 05/26/2024 8:12 AM ACOUSTICAL TILE DRILL PRESS OPERATOR Performed at: [address] [place] [id number] System Support Developer: Deric Guillen PhD, Phone: [phone] Johnathan Day MD LAB BLOOD ORDERABLES Fin al Result [facility] - * Stool DNA - Cologuard (03/20/2022 10:20 AM CDT) [facility] Stool DNA - Cologuard Negative Negative [employer] (CLIA #:[id number]) Comment: NEGATIVE TEST RESULT. A negative Cologuard [...] screened with both Cologuard and colonoscopy. (Ellie Delong al, N Engl J Med 2014;370(14):6494-7817) The normal value (reference range) for this assay is negative. COLOGUARD RE-SCREENING RECOMMENDATION: Periodic colorectal cancer screening is an important part of preventive healthcare for asymptomatic individuals at average risk for colorectal cancer. Following a negative Cologuard result, the [place] [employer] Society and U.S. Multi-Society Task Force screening guidelines recommend a Cologuard re-screening interval of 3 years. References: [place] [employer] Guideline for Colorectal Cancer Screening: https://www.cancer.org/cancer/vhyds-wdaogn-xtmemr/oaincfrty-ygscjthmw-ugqcrzo/ac s-rec ommendations.html.; Marco Antonio DK, Sherly CR, Bryan SmithK, Colorectal Cancer Screening: Recommendations for Physicians and Patients from the U.S. Multi-Society Task Force on Colorectal Cancer Screening , Am J Gastroenterology 2017; 112:5121-1872. TEST DESCRIPTION: Composite algorithmic analysis of stool [...] screened with both Cologuard and colonoscopy. (Ellie Delong al, N Engl J Med 2014;370(14):4578-0416.) Cologuard may produce a false negative or false positive result (no colorectal cancer or precancerous polyp present at colonoscopy follow up). A negative Cologuard test result does not guarantee the absence of CRC or advanced adenoma (pre-cancer). The current Cologuard screening interval is every 3 years. ([place] [employer] Society and U.S. Multi-Society Task Force). Cologuard performance data in a 10,000 patient pivotal study using colonoscopy as the reference method can be accessed at the following location: www.EventRegist.ideasoft/results. Additional description of the Cologuard test process, warnings and precautions can be found at www.cologAdviesmanager.nlrd.com. Stool 03/20/2022 10:2 0 AM CDT 03/22/2022 2:06 PM CDT Johnathan Day MD LAB BODY FLUIDS AND STOO LS ORDERABLES Final Result [facility] (CLIA #:[id number]) [address] [place] [address] from Last 3 Months or Most Recently Relevant to Health Maintenance Insurance [facility] Care Teams Ballpoint Pen Assembly Machine Operator Relationship Specialty Start Date End Date Johnathan Day MD PCP - General 11/05/14 Pierre Moran MD Referring Physician Cardiology 12/10/22 Fatuma Vásquez, maker up folding Failure Coordinator Transplant 07/10/23 Evita Mendoza maker up folding Failure Coordinator Cardiology 12/09/23
--- OUTSIDE RECORDS SUMMARY | 2024-12-21 13:35 | XMS_ITS | Clinical Summary ---
Author Organization [facility] Address [address] [place]: Epic Prelude ADT [place] [address] Care Team Providers Care Gas Adjuster Name Role Phone Unavailable Primary Care Provider Unavailabl e Allergies No known active allergies Medications testosterone enanthate (Xyosted) 100 mg/0.5 mL Auto-Injector INJECT ONE PEN UNDER THE SKIN ONCE WEEKLY 2 mL 5 07/28/2022 12:06 PM ELECTRONICS INSPECTOR 2 Active buPROPion HCL (Wellbutrin XL) 300 mg Extended Release 24 hour tablet Take 1 tablet (300 mg) by mouth daily in the morning 30 Tablet 1 04/30/2022 2:32 PM ELECTRONICS INSPECTOR 2 Active tobramycin (TOBREX) 0.3 % solution Administer 1 drop in both eyes 4 times daily for 7 days. 5 mL 3 Active busPIRone (BUSPAR) 15 mg Tablet Take 1 Tablet (15 mg) by mouth 2 times daily. 60 Tablet 1 06/28/2022 11:51 AM ELECTRONICS INSPECTOR 3 Active penicillin V potassium (VEETID) 500 mg tablet Take 1 Tablet (500 mg) by mouth every 6 hours until gone. 28 Tablet 03/21/2023 3:21 PM CDT 3 Active buPROPion HCL (Wellbutrin XL) 300 mg Extended Release 24 hour tablet Take 1 Tablet (300 mg) by mouth daily in the morning. 30 Tablet 2 12/04/2023 11:51 AM CDT 4 Active amoxicillin (AMOXIL) 500 mg capsule Take 4 capsules by mouth 1 hour prior to surgery 4 Capsule 11/12/2023 4:34 PM CDT 4 Active chlorhexidine gluconate 0.12 % Mouthwash Swish and spit 10-15 ML twice by mouth twice daily for 1 week before and after surgery. 473 mL 11/12/2023 4:34 PM CDT 4 Active testosterone enanthate (Xyosted) 100 mg/0.5 mL Auto-Injector Inject 0.5 mL by subcutaneous injection every 7 days. 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
--- OUTSIDE RECORDS SUMMARY | 2024-12-21 13:35 | XMS_ITS | Encounter Summary ---
Author Organization [facility] [employer] Address 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
== END 2024-12-21 13:31 | disposition home or self-care (01) ==
PROVIDERS: PCP Internal Medicine Endocrinology, Diabetes & Metabolism; Visit Provider Urology
DX: C61 Malignant neoplasm of prostate (principal)
CPT/HCPCS: 78815; A9596